=== PATIENT | female | born 2000 | race Caucasian/White ===

== ENCOUNTER 2022-04-25 10:15 | Outpatient (CLI) | payer MEDICAID, SELFPAY ==
[2022-04-26 23:47] LABS: Immunoglobulin A 136 mg/dL (68-408)
[2022-04-27 15:15] LABS: Tissue Transglutaminase IgA 45 U/mL (0-3)
== END 2022-04-25 10:16 | disposition home or self-care (01) ==
LOC: FRMREF 10:17
PROVIDERS: PCP Family Medicine; Visit Provider Nurse Practitioner Family
DX: R14.0 Abdominal distension (gaseous) (principal)
CPT/HCPCS: 82784; 86364

== ENCOUNTER 2023-05-04 08:13 | Outpatient (CLI) | payer MEDICAID, SELFPAY ==
[2023-05-04 15:14] LABS: Chlamydia DNA Amplified* NOT DETECTED (No Detected); GC DNA Amplified* NOT DETECTED (No Detected)
== END 2023-05-04 08:14 | disposition home or self-care (01) ==
PROVIDERS: PCP Family Medicine; Visit Provider Registered Nurse
DX: Z11.3 Encounter for screening for infections with a predominantly sexual mode of transmission (principal); N92.6 Irregular menstruation, unspecified
CPT/HCPCS: 84443; 87491; 87591

== ENCOUNTER 2023-07-03 19:13 | Outpatient (CLI) | payer MEDICAID, SELFPAY | END 2023-07-03 19:14 | disposition home or self-care (01) | PROVIDERS: PCP Family Medicine; Visit Provider Emergency Medicine | DX: R55 Syncope and collapse (principal); Z13.228 Encounter for screening for other metabolic disorders | CPT/HCPCS: 80053; 83735 ==

== ENCOUNTER 2024-09-18 16:07 | Emergency (ER) | payer MEDICAID, SELFPAY ==
--- OUTSIDE RECORDS SUMMARY | 2024-09-18 16:09 | XMS_ITS | Encounter Summary ---
Author Organization [facility] Address [address] [place] [address] Care Team Providers Care Hired Help Name Role Phone Se Ann MD Primary Care Provider [phone] Steven Lay PA-C Unavailable [phone] Reason for Visit * Reason Comments Follow up Intermittent headach es Encounter Details Date Type Department Care Team (Late st Contact Info) Description 09/04/2024 2:00 PM CDT Office Visit [facility] - 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 Headaches occurring 2-3 times per month since starting Depakote, but increased frequency in the past week Experienced a brain zap sensation on Sunday, Following the brain zap, developed a headache in the back of the head which has continued since, now described as a normal headache Typical headaches usually occur in the front of the head, affecting the eyes Has been experiencing daily dull pressure headaches in the past week, associated with increased stress and anxiety Reports waking up in the middle of the night in a panic, feeling like falling, or jolting awake Not sleeping well lately History of seizures: first seizure as a baby with fever, second seizure at age 7 without fever Episode in June 2023 where Kenya was talking to a student but couldn't recall what happened afterward, was confused, saying things that didn't make sense, and was very tired for the rest of the day Previous EEG showed slight abnormality with abnormal slowing and right temporal sharp wave, but no definitive seizure activity Previous MRI of the brain was normal (performed last winter) Family history of epilepsy (grandmother has epilepsy, typically presents with mumbling, had one episode with convulsions) Currently taking Depakote (two pills at night) and has rizatriptan as needed Has been taking Ashwagandha inconsistently No recent blood work Assessment: Migraine headaches, currently increased in frequency Possible seizure disorder, though episodes may be migraine-related Plan: Continue Depakote (two pills at night) Add amitriptyline to be taken every night one hour before bedtime to improve sleep, prevent dull headaches, and help with anxiety/stress Continue rizatriptan as needed for headaches that last more than 30 minutes Order repeat EEG to clarify previous findings Order blood work to check liver function and other parameters related to Depakote therapy Follow-up appointment in 6 weeks Pertinent history: Her recent MRI of the brain on 09/19/2023 was normal and saw no new findings compared to her previous scan in 2007. She did have an EEG performed on 09/03/2023 that was abnormal that had intermittent right temporal slowing with occasional right temporal sharp waves which is consistent with interictal finding of complex partial seizures. PAST MEDICAL HISTORY Past Medical History: Diagnosis Date Confusion and disorientation Headache PAST SURGICAL HISTORY No past surgical history on file. ALLERGIES/SENSITIVITIES No Known Allergies CURRENT MEDS Current Outpatient Medications: divalproex (DEPAKOTE ER) 250 mg oral 24-hour extended-release tablet, Take 2 tablets qhs., Disp: 180 tablet, Rfl: 3 rizatriptan (MAXALT) 10 mg oral tablet, Take 1 tablet (10 mg) by mouth as needed for migraine headache. May repeat after two hours. Maximum dose 30mg/24 hours., Disp: 12 tablet, Rfl: 11 SOCIAL HISTORY Social History Socioeconomic History Marital status: Single Spouse name: Not on file Number of children: Not on file Years of education: Not on file Highest education level: Not on file Occupational History Not on file Tobacco Use Smoking status: Never Smokeless tobacco: Never Substance and Sexual Activity Alcohol use: Not Currently Drug use: Not on file Sexual activity: Not on file Other Topics Concern Not on file Social History Narrative Not on file Social Drivers of Health Financial Resource Strain: High Risk (05/28/2021) [facility] Financial Resource Strain Difficulty of Paying Living Expenses: Not on file Difficulty of Paying Living Expenses: Not on file Food Insecurity: Not on file Transportation Needs: Not on file Physical Activity: Not on file Stress: Not on file Social Connections: Unknown (05/28/2021) Received from [facility], [facility], [facility] Social Connections Frequency of Communication with Friends and Family: Not on file Intimate Partner Violence: Not on file Housing Stability: Not on file FAMILY HISTORY Family History Problem Relation Name Age of Onset Seizures Maternal Grandmother REVIEW OF SYSTEMS: 10 point ROS was otherwise negative. I spent 32 min. with the patient in activities before, during and after the visit 2024: Documentation of current mediations reviewed every visit 2. Does patient use tobacco? No 3. Patient has had no falls in calendar year 4. Does patient have Dementia? No I am the single focal point of care for a condition that requires longitudinal relationship and personalized care for condition(s) specified within this medical record. Clem Flores MD Neurology documented in this encounter Plan of Treatment Scheduled Orders Name Type Priority Associated Diagnoses Orde r Schedule CBC/DIFFERENTIAL WITH PLATELET ([facility]) Lab Routine Migraine with aura and without status migrainosus, not intractable Twice a Year for 3 Occurrences starting 09/04/2024 until 09/04/2025 COMPREHENSIVE METABOLIC PANEL 14 ([facility]) Lab Routine Migraine with aura and without status migrainosus, not intractable Expected: 09/04/2024, Expires: 09/04/2025 documented as of this encounter Results * EEG AWAKE AND DROWSY ROUTINE (09/11/2024 2:55 PM CDT) Anatomical Region Laterality Modality Magnetic Resonan ce Narrative 09/11/2024 5:11 PM CDT Table formatting from the original result was not included. PATIENT NAME: Kenya Das LOCATION: [place] TEST DATE: 09/11/2024 : 2000 TECH NAME: Brant AGE: 24 DURATION: 00:25:26 GENDER: REF. PHYSICIAN Female Clem Flores MD CC: N/A MEDICATIONS: Elavil, Divalproex REASON FOR REFERRAL: History of Confusion and disorientation. Findings: Background: normal posterior dominant alpha activity of 10 hz frequency, attenuation with eye opening Photic stimulation: No driving Hyperventilation: There is increased right central temporal slowing with intermittent sharp waves in the right temporal leads. Sleep record: None Other findings: There is intermittent right hemispheric theta slowing with right temporal spikes and sharp waves localized to T6. EKG- Normal sinus rhythm, 84 bpm. Conclusion: Abnormal EEG. 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 Electronically Signed By: Clem Flores MD us Clem Flores MD EEG ORDERABLE Final Re sult documented in this encounter Visit Diagnoses Diagnosis Migraine with aura and without status migrainosus, not intractable- Primary Migraine with aura, without mention of intractable migraine without mention of status migrainosus Confusion and disorientation Confusion and disorientation documented in this encounter Care Teams Hired Help Relationship Specialty [place] [address] [place] [address] PCP - General 07/05/23 Steven Lay PA-C [address] [place] [address] Neurology 08/15/23 documented as of this encounter
--- OUTSIDE RECORDS SUMMARY | 2024-09-18 16:09 | XMS_ITS | Clinical Summary ---
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 Gender Identity Not on file Sexual Orientation Not on file Travel History Travel Start Travel End [place] 08/04/2024 09/01/2024 Plan of Treatment Not on file Procedures Procedure Name Priority Date/Time Associated Diagnosis Comments CBC WITH PLATELETS & DIFFERENTIAL Routine 09/04/2024 3:00 PM CDT Classical migraine CBC WITH PLATELETS AND DIFFERENTIAL Routine 09/04/2024 3:00 PM CDT Classical migraine COMPREHENSIVE METABOLIC PANEL Routine 09/04/2024 3:00 PM CDT Classical migraine from Last 3 Months Results * CBC with platelets and differential (09/04/2024 3:00 PM CDT) [facility] WBC Count 10.3 4.0 - 11.0 10e3/uL 09/04/2024 3:07 PM CDT [facility] RBC Count 4.53 3.80 - 5.20 10e6/uL 09/04/2024 3:07 PM CDT [facility] Hemoglobin 14.1 11.7 - 15.7 g/dL 09/04/2024 3:07 PM CDT [facility] Hematocrit 41.1 35.0 - 47.0 % 09/04/2024 3:07 PM CDT [facility] MCV 91 78 - 100 fL 09/04/2024 3:07 PM CDT [facility] MCH 31.1 26.5 - 33.0 pg 09/04/2024 3:07 PM CDT [facility] MCHC 34.3 31.5 - 36.5 g/dL 09/04/2024 3:07 PM CDT [facility] RDW 12.9 10.0 - 15.0 % 09/04/2024 3:07 PM CDT [facility] Platelet Count 275 150 - 450 10e3/uL 09/04/2024 3:07 PM CDT [facility] % Neutrophils 71 % 09/04/2024 3:07 PM CDT [facility] % Lymphocytes 21 % 09/04/2024 3:07 PM CDT [facility] % Monocytes 8 % 09/04/2024 3:07 PM CDT [facility] % Eosinophils 0 % 09/04/2024 3:07 PM CDT [facility] % Basophils 1 % 09/04/2024 3:07 PM CDT [facility] % Immature Granulocytes 0 % 09/04/2024 3:07 PM CDT [facility] NRBCs per 100 WBC 0 <1 /100 025 3:07 PM CDT [facility] Absolute Neutrophils 7.2 1.6 - 8.3 10e3/uL 09/04/2024 3:07 PM CDT [facility] Absolute Lymphocytes 2.1 0.8 - 5.3 10e3/uL 09/04/2024 3:07 PM CDT [facility] Absolute Monocytes 0.8 0.0 - 1.3 10e3/uL 09/04/2024 3:07 PM CDT [facility] Absolute Eosinophils 0.0 0.0 - 0.7 10e3/uL 09/04/2024 3:07 PM CDT [facility] Absolute Basophils 0.1 0.0 - 0.2 10e3/uL 09/04/2024 3:07 PM CDT [facility] Absolute Immature Granulocytes 0.0 <=0.4 10e3/uL 09/04/2024 3:07 PM CDT [facility] Absolute NRBCs 0.0 10e3/uL 09/04/2024 3:07 PM CDT LABORATORY Blood STRUCTURE OF RIGHT UPPER LIMB / Unknown Venipuncture / Unknown 09/04/2024 3:00 PM CDT 09/04/2024 3:02 PM CDT us Clem Flores MD LAB - BLOOD ORDERABLES Final Result LABORATORY [facility] [address] [facility] Lab (1st floor, no room number) [place] [address], [facility] * Comprehensive metabolic panel (09/04/2024 3:00 PM CDT) Sodium 138 135 - 145 mmol/L 09/04/2024 3:29 PM CDT LABORATORY Potassium 4.1 3.4 - 5.3 mmol/L 09/04/2024 3:29 PM CDT LAB[facility]ATORY Carbon Dioxide (CO2) 25 22 - 29 mmol/L 09/04/2024 3:29 PM CDT LAB[facility]ORY Anion Gap 11 7 - 15 mmol/L 09/04/2024 3:29 PM CDT LABORATORY Urea Nitrogen 9.7 6.0 - 20.0 mg/dL 09/04/2024 3:29 PM CDT [facility] Creatinine 0.69 0.51 - 0.95 mg/dL 09/04/2024 3:29 PM CDT [facility] GFR Estimate >90 >60 mL/min/1.7 3m2 09/04/2024 3:29 PM CDT [facility] Comment:eGFR calculated us2020 CKD-EPI equation. Calcium 9.4 8.8 - 10.4 mg/dL 09/04/2024 3:29 PM CDT LABORATORY Chloride 102 98 - 107 mmol/L 09/04/2024 3:29 PM CDT LABORATORY Glucose 86 70 - 99 mg/dL 09/04/2024 3:29 PM CDT [facility] Alkaline Phosphatase 74 40 - 150 U/L 09/04/2024 3:29 PM CDT [facility] AST 38 0 - 45 U/L 09/04/2024 3:29 PM CDT [facility] ALT 38 0 - 50 U/L 09/04/2024 3:29 PM CDT [facility] Protein Total 7.6 6.4 - 8.3 g/dL 09/04/2024 3:29 PM CDT [facility] Albumin 4.9 3.5 - 5.2 g/dL 09/04/2024 3:29 PM CDT [facility] Bilirubin Total 0.4 <=1.2 mg/dL 09/04/2024 3:29 PM CDT [facility] Blood STRUCTURE OF RIGHT UPPER LIMB / Unknown Venipuncture / Unknown 09/04/2024 3:00 PM CDT 09/04/2024 3:02 PM CDT us Clem Flores MD LAB - BLOOD ORDERABLES Final Result [facility] [address] Lab (1st floor, no room number) [place] [address], [facility] from Last 3 Months Insurance [facility] Care Teams Patient Carrier Relationship Specialty Start Date End Date Tino Ann MD [facility] [address] [place], [place] [id number] PCP - General Family Medicine 09/04/24
--- OUTSIDE RECORDS SUMMARY | 2024-09-18 16:09 | XMS_ITS | Clinical Summary ---
Author Organization [facility] Address [address] [place] [address] Care Team Providers Care Hand Weaver Name Role Phone Pcp, No Primary Care Provider Unavailabl e Unknown, Doctor Unavailable Unavailable Unknown, Doctor Unavailable Unavailable Allergies No known active allergies Medications Hospital, Clinic, or Other Facility Administered Medication Ordered Dose Route Frequency Start Date End Date Status etonogestrel subdermal implant (NEXPLANON) 1 EachIndications:Uses contraception 1 Each Sdrm Q 3 YEARS 08/05/2020 Active Family History Medical History Relation Name Comments Good Health Brother 1 Isacc Das Good Health Brother 2 Eddie Christopheron Good Health Brother 3 Ty Pippa Hypertension Father Manny Das Good Health Maternal Grandfather Good Health Maternal Grandmother Good Health Mother Jasmin Das Good Health Paternal Grandfather Good Health Paternal Grandmother Good Health Sister Mindy Das Relation Name Status Comments Brother 1 Isacc Christopheron Alive Brother 2 Eddie Christopheron Alive Brother 3 Ty Pippa Alive Father Manny Das Alive Maternal Grandfather Other Maternal Grandmother Alive Mother Jasmin Das Alive Paternal Grandfather Alive Paternal Grandmother Alive Sister Mindy Das Alive Social History Tobacco Use Types Packs/Day Years Used Date Smoking Tobacco: Never Smokeless Tobacco: Never Alcohol Use Standard Drinks/Week Comments Never 0 (1 standard drink = 0.6 oz pur e alcohol) Social Connections Answer Date Recorded Frequency of Communication with Friends and Fami ly Not on file 05/28/2021 Financial Resource Strain Answer Date R ecorded Difficulty of Paying Living Expenses Not on file 05/28/2021 Difficulty of Paying Living Expenses Not on file 05/28/2021 Comments No Sex and Gender Information Value Date Recorded Sex Assigned at Not on file 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 Gender Identity Not on file Sexual Orientation Not on file Obstetrics History Last Filed Vital Signs Vital Sign Reading Time Taken Comments Blood Pressure 124/80 09/17/2020 8:18 AM CDT Pulse 80 09/17/2020 8:18 AM CDT Temperature 37.1 C (98.7 F) 09/17/2020 8:18 AM CDT Respiratory Rate 20 07/27/2020 2:38 PM SANDWICH MACHINE OPERATOR Oxygen Saturation 100% 09/01/2020 11: 20 AM CDT Inhaled Oxygen Concentration - - Weight 69.7 kg (153 lb 11.2 oz) 09/17/2020 8:18 AM CDT Height 169 cm (5' 6.54) 09/17/2020 8:18 AM CDT Body Mass Index 24.41 09/17/2020 8:18 AM CDT Plan of Treatment Health Maintenance Due Date Last Done Comments Tdap 2012 Depression screening for age 12+ 2013 HIV for age 15-65 2016 HPV series for age 9-26 (1 - 3-dose series) 2016 Hepatitis C screening for ag e 18-79 2019 Tetanus booster 2021 BMI (ht and wt on same day) for age 18+ 09/17/2021 09/17/2020 Chlamydia for age 16-24 09/17/2021 09/17/2020 Pap test for age 21-65 2022 COVID-19 vaccine series (2023- season) 2024 Influenza Vaccine (Season Ended) 2025 Pneumococcal series for age 6-49 Aged Out No longer eligible based on patient's age to complete this topic Procedures Procedure Name Priority Date/Time Associated Diagnosis Comments GC CHLAMYDIA TRACH PROBE Routine 09/17/2020 8:54 AM CDT Vaginal discharge from Last 3 Months or Most Recently Relevant to Health Maintenance Results * GC CHLAMYDIA TRACH PROBE (09/17/2020 8:54 AM CDT) CHLAMYDIA PROBE Negative 11:41 PM CDT [facility] N GONORRHOEAE PROBE Negative 09/17/2020 11:41 PM CDT [facility] Other URINE SPECIMEN / Unknown Non-Blood / Unknown 09/17/2020 8:54 AM CDT 09/17/2020 8:54 AM CDT us Akanksha Johnson MD MICROBIOLOGY Fi nal Result [facility] [address] [place] [address], from Last 3 Months or Most Recently Relevant to Health Maintenance Insurance [facility] Care Teams Hand Weaver Relationship Specialty Start Date End Date Pcp, No . PCP - General 09/17/20 Unknown, Doctor . 09/17/20 Unknown, Doctor . 09/01/20
--- OUTSIDE RECORDS SUMMARY | 2024-09-18 16:09 | XMS_ITS | Encounter Summary ---
Author Organization [facility] Address [address] [place] [address]. [place] [address] Care Team Providers Care Ergonomics Technician Name Role Phone Tino Ann MD Primary Care Provider [phone] Encounter Details Date Type Department Care Team (Late st Contact Info) Description 09/04/2024 2:[address] 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 Gender Identity Not on file Sexual Orientation Not on file Travel History Travel Start Travel End [place] 08/04/2024 09/01/2024 documented as of this encounter Plan of Treatment Not on file documented as of this encounter Procedures Procedure Name Priority Date/Time Associated Diagnosis Comments CBC WITH PLATELETS AND DIFFERENTIAL Routine 09/04/2024 3:00 PM CDT Classical migraine CBC WITH PLATELETS & DIFFERENTIAL Routine 09/04/2024 3:00 PM CDT Classical migraine COMPREHENSIVE METABOLIC PANEL Routine 09/04/2024 3:00 PM CDT Classical migraine documented in this encounter Results * CBC with platelets and differential (09/04/2024 3:00 PM CDT) WBC Count 10.3 4.0 - 11.0 10e3/uL [...] NRBCs 0.0 10e3/uL 09/04/2024 3:07 PM CDT [facility] Blood STRUCTURE OF RIGHT UPPER LIMB / Unknown Venipuncture / Unknown 09/04/2024 3:00 PM CDT 09/04/2024 3:02 PM CDT us Clem Flores MD LAB - BLOOD ORDERABLES Final Result LABORATORY [facility] [address] Lab (1st floor, no room number) [place] [address], [facility] * Comprehensive metabolic panel (09/04/2024 3:00 PM [...] - 20.0 mg/dL 09/04/2024 3:29 PM CDT LABORATORY Creatinine 0.69 0.51 - 0.95 mg/dL 09/04/2024 3:29 PM CDT LABORATORY GFR Estimate >90 >60 mL/min/1.7 3m2 09/04/2024 3:29 PM CDT LABORATORY Comment:eGFR calculated us2020 CKD-EPI equation. Calcium [...] LAB - BLOOD ORDERABLES Final Result LABORATORY [facility] [address] Lab (1st floor, no room number) [place] [address], [facility] documented in this encounter Visit Diagnoses Diagnosis Classical migraine- Primary Migraine with aura, without mention of intractable migraine without mention of status migrainosus documented in this encounter Care Teams Ergonomics Technician Relationship Specialty Start Date End Date Tino Ann MD [facility] [address], [place] [address] PCP - General Family Medicine 09/04/24 documented as of this encounter
--- OUTSIDE RECORDS SUMMARY | 2024-09-18 16:09 | XMS_ITS | Referral Summary ---
Author Organization [facility] Address [address] [place] [address] Care Team Providers Care Phone Screener Name Role Phone Se Ann MD Primary Care Provider [phone] Steven Lay PA-C Unavailable [phone] Encounters Date Type Department Care Team Description 09/11/2024 2:15 PM CDT Ancillary Procedure 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 180 tablet 3 5 Active rizatriptan (MAXALT) 10 mg oral tabletIndication s:Migraine with aura and without status migrainosus, not intractable Take 1 tablet (10 mg) by mouth as needed for migraine headache. May repeat after two hours. Maximum dose 30mg/24 hours. 12 tablet 11 5 Active amitriptyline (ELAVIL) 10 mg oral tablet Take 1 tablet (10 mg) by mouth at bedtime for 90 days. 90 tablet 5 12/04/19 25 Active Active Problems No known active problems Immunizations Name Administration Dates Next Due DTaP (Infanrix) 11/16/2006,03/25/2003,01/31/2002 ,2001,2001 HIB 2001 HPV Quadrivalent 01/07/2014 HPV9 12/19/2016 Hep A Pediatric 12/19/2016,01/07/2014 Hep B Pediatric 07/23/2002,2001 Influenza Unspecified 07/14/2006,04/27/2003 MMR 11/16/2006,03/25/2003 Meningococcal MCV4O 01/07/2014 Pneumococcal PCV7 07/23/2002,01/31/2002,11/27/19 02,2001 Polio IPV 11/16/2006,01/31/2002,2001 ,2001 Varicella 01/07/2014,07/23/2002 Social History Tobacco Use Types Packs/Day Years Used Date Smoking Tobacco: Never Smokeless Tobacco: Never Tobacco Cessation:Counseling Given: Not Answered Alcohol Use Standard Drinks/Week Comments Not Currently 0 (1 standard drink = 0.6 oz pur e alcohol) Comments Unknown Sex and Gender Information Value Date Recorded Sex Assigned at Not on file 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 Gender Identity Not on file Sexual Orientation Not on file Last Filed Vital Signs Vital Sign Reading Time Taken Comments Blood Pressure 124/78 08/29/2023 9:05 AM CDT Pulse 70 08/29/2023 9:05 AM CDT Temperature - - Respiratory Rate 14 08/01/2024 9:15 AM FITTING ROOM INSPECTOR Oxygen Saturation - - Inhaled Oxygen Concentration - - Weight 79.4 kg (175 lb) 08/01/2024 9:15 AM FITTING ROOM INSPECTOR Height 167.6 cm (5' 6) 08/01/2024 9:15 AM FITTING ROOM INSPECTOR Body Mass Index 28.25 08/01/2024 9:15 AM FITTING ROOM INSPECTOR Plan of Treatment Not on file Procedures Procedure Name Priority Date/Time Associated Diagnosis Comments EEG AWAKE AND DROWSY ROUTINE Routine 09/11/2024 2:55 PM CDT Confusion and disorientation SCANNED LAB Routine 09/04/2024 4:18 PM CDT from Last 3 Months Results * EEG AWAKE AND DROWSY ROUTINE (09/11/2024 2:55 PM CDT) Anatomical Region Laterality Modality Magnetic Resonan ce Narrative 09/11/2024 5:11 PM CDT Table formatting from the original result was not included. PATIENT NAME: Kenya Das LOCATION: [place] TEST DATE: 09/11/2024 : 2001 TECH NAME: [...] Flores MD EEG ORDERABLE Final Re sult * SCANNED LAB (09/04/2024 4:18 PM CDT) us Clem Flores MD MICROBIOLOGY ORDERABLE F inal Result from Last 3 Months Insurance [facility] Care Teams Phone Screener Relationship Specialty [place] [address] [place], [place] [id number] PCP - General 07/05/23 Steven Lay PA-C [address] [facility] [address] [place] [address] Neurology 08/15/23
--- OUTSIDE RECORDS SUMMARY | 2024-09-18 16:09 | XMS_ITS | Encounter Summary ---
Author Organization [facility] Address [address] [place] [address]. 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
[2024-09-18 16:10] VITALS: BP 138/87; PULSE 110; RESP 16; TEMP 36.7; O2SAT 99; BMI 26.6
--- OUTSIDE RECORDS SUMMARY | 2024-09-18 16:10 | XMS_ITS | Encounter Summary ---
Author Organization [facility] Address [address] [place] [address] Care Team Providers Care Submarine Worker Name Role Phone Se Ann MD Primary Care Provider [phone] Steven Lay PA-C Unavailable [phone] Encounter Details Date Type Department Care Team (Latest Contact Info) Description 09/11/2024 2:15 PM CDT Ancillary Procedure [facility] of Neurology [address] [place], [place] [id number] Confusion and disorientation Social History Tobacco Use Types Packs/Day Years Used Date Smoking Tobacco: Never Smokeless Tobacco: Never Alcohol Use Standard Drinks/Week Comments Not Currently 0 (1 standard drink = 0.6 oz pur e alcohol) Comments Unknown Sex and Gender Information Value Date Recorded Sex Assigned at Not on file Legal Sex Female 11:57 AM DISTILLERY MANAGER Gender Identity Not on file Sexual Orientation Not on file documented as of this encounter Plan of Treatment Not on file documented as of this encounter Procedures Procedure Name Priority Date/Time Associated Diagnosis Comments EEG AWAKE AND DROWSY ROUTINE Routine 09/11/2024 2:55 PM CDT Confusion and disorientation documented in this encounter Results * EEG AWAKE AND DROWSY ROUTINE (09/11/2024 2:55 PM CDT) Anatomical Region Laterality Modality Magnetic Resonan ce Narrative 09/11/2024 5:11 PM CDT Table formatting from the original result was not included. PATIENT NAME: Kenya Das LOCATION: [place] TEST DATE: 09/11/2024 : 2001 TECH NAME: [...] documented in this encounter Visit Diagnoses Diagnosis Confusion and disorientation documented in this encounter Care Teams Submarine Worker Relationship Specialty [place] [address] [place] [address] PCP - General 07/05/23 Stevne Lay PA-C [address] [place] [address] [address] [place] [address] Neurology 08/15/23 documented as of this encounter
--- OUTSIDE RECORDS SUMMARY | 2024-09-18 16:10 | XMS_ITS | Encounter Summary ---
Author Organization [facility] Address [address] [place] [address] Care Team Providers Care Square Shear Operator Name Role Phone Se Ann MD Primary Care Provider [phone] Steven Lay PA-C Unavailable [phone] Encounter Details Date Type Department Care Team (Late st Contact Info) Description 09/04/2024 Order-Scan [facility] of Neurology [address] [place] [phone] Clem Flores MD [address] [place] [address] [place] [id number] Social History Tobacco Use Types Packs/Day Years Used Date Smoking Tobacco: Never Smokeless Tobacco: Never Alcohol Use Standard Drinks/Week Comments Not Currently 0 (1 standard drink = 0.6 oz pur e alcohol) Comments Unknown Sex and Gender Information Value Date Recorded Sex Assigned at Not on file Legal Sex Female 11:57 AM SENIOR SQL DBA Gender Identity Not on file Sexual Orientation Not on file documented as of this encounter Plan of Treatment Not on file documented as of this encounter Procedures Procedure Name Priority Date/Time Associated Diagnosis Comments SCANNED LAB Routine 09/04/2024 4:18 PM CDT documented in this encounter Results * SCANNED LAB (09/04/2024 4:18 PM CDT) us Clem Flores MD MICROBIOLOGY ORDERABLE F inal Result documented in this encounter Visit Diagnoses Not on filedocumented in this encounter Care Teams Square Shear Operator Relationship Specialty [place] [address] [place] [address] PCP - General 07/05/23 Steven Lay PA-C [address] [facility] [address] [place] [address] Neurology 08/15/23 documented as of this encounter
--- OUTSIDE RECORDS SUMMARY | 2024-09-18 16:10 | XMS_ITS | Clinical Summary ---
Author Organization [facility] Address [address] [place] [address] Care Team Providers Care Director Of Online Education Name Role Phone Se Ann MD Primary Care Provider [phone] Steven Lay PA-C Unavailable [phone] Allergies No known active allergies Medications divalproex [...] Active Active Problems No known active problems Encounters Date Type Department Care Team Description 09/11/2024 2:15 PM CDT Ancillary Procedure [facility] Neurology [address] [place] [address] Confusion and disorientation 09/04/2024 2:00 PM CDT Office Visit [address] [place] [address] Clem Flores MD Migraine with aura and without status migrainosus, not intractable (Primary Dx); Confusion and disorientation 09/04/2024 Order-Scan [address] [place] [address] Clem Flores MD 08/01/2024 9:00 AM MEMBERSHIP ADVISOR Office Visit [address] [place] [address] Steven Lay PA-C Migraine with aura and without status migrainosus, not intractable; Confusion and disorientation; Anxiety disorder, unspecified type from Last 3 Months Immunizations Name Administration Dates Next Due DTaP (Infanrix) 11/16/2006,03/25/2003,01/31/2002 ,2001,2001 HIB 2001 HPV Quadrivalent 01/07/2014 HPV9 12/19/2016 Hep A Pediatric 12/19/2016,01/07/2014 Hep B Pediatric 07/23/2002,2001 Influenza Unspecified 07/14/2006,04/27/2003 MMR 11/16/2006,03/25/2003 Meningococcal MCV4O 01/07/2014 Pneumococcal PCV7 07/23/2002,01/31/2002,11/27/19 02,2001 Polio IPV 11/16/2006,01/31/2002,2001 ,2001 Varicella 01/07/2014,07/23/2002 Family History Medical History Relation Comments Seizures Maternal Grandmother Relation Status Comments Maternal Grandmother Social History Tobacco Use Types Packs/Day Years Used Date Smoking Tobacco: Never Smokeless Tobacco: Never Tobacco Cessation:Counseling Given: Not Answered Alcohol Use Standard Drinks/Week Comments Not Currently 0 (1 standard drink = 0.6 oz pur e alcohol) Comments Unknown Sex and Gender Information Value Date Recorded Sex Assigned at Not on file Legal Sex Female 11:57 AM MEMBERSHIP ADVISOR Gender Identity Not on file Sexual Orientation Not on file Last Filed Vital Signs Vital Sign Reading Time Taken Comments Blood Pressure 124/78 08/29/2023 9:05 AM CDT Pulse 70 08/29/2023 9:05 AM CDT Temperature - - Respiratory Rate 14 08/01/2024 9:15 AM MEMBERSHIP ADVISOR Oxygen Saturation - - Inhaled Oxygen Concentration - - Weight 79.4 kg (175 lb) 08/01/2024 9:15 AM MEMBERSHIP ADVISOR Height 167.6 cm (5' 6) 08/01/2024 9:15 AM MEMBERSHIP ADVISOR Body Mass Index 28.25 08/01/2024 9:15 AM MEMBERSHIP ADVISOR Plan of Treatment Health Maintenance Due Date Last Done Comments Chlamydia/Gonorrhea Screening 2001 Evaluate Sexual History 2001 Hepatitis C Screening 2001 Pap Smear 2001 Anxiety Screening (MEGHAN-2) 2002 Depression Assessment (PHQ-2) 2002 Adult Tetanus Booster 01/08/2024 01/07/2014 COVID-19 Vaccine ( season) 2024 Influenza Vaccine (Season Ended) 2025 07/14/2006, 04/27/2003 RSV Vaccines (1 - 1-dose 75+ series) 2076 Pneumococcal Vaccine Aged Out 07/23/2002, 01/31/2002, 2001, Additional history exists No longer eligible based on patient's age to complete this topic HPV Vaccine Completed 12/19/2016, 01/07/2014 Procedures Procedure Name Priority Date/Time Associated Diagnosis [...] not included. PATIENT NAME: Kenya Das LOCATION: [place] TEST DATE: 09/11/2024 : 2001 TECH NAME: [...] inal Result from Last 3 Months Insurance [facility] Care Teams Director Of Online Education Relationship Specialty [place] [address] [place] [address] PCP - General 07/05/23 Steven Lay PA-C [address] [facility] [address] [place] [address] Neurology 08/15/23
--- NOTE | 2024-09-18 18:08 | ED_ITS ---
HPI - Arrhythmia/Palpitations General Chief Complaint: Arrhythmia/Palpitations Stated Complaint: reaction to new medications, heart racing Time Seen by Provider: 09/18/24 17:31 History of Present Illness HPI narrative: This 24-year-old female comes in reporting some episodes of palpitations and sometimes increased heart rate. She states that this is been happening over the past several days and reports starting a low dose of amitriptyline about a week ago. She takes Depakote for seizure prevention as she has a history of seizure disorder. She had been to a neurology appointment and did not see a regular neurologist but an engineering assistant who did provide this prescription of amitriptyline 10 mg as she was having some headache symptoms. She states that she takes a Triptan medicine as needed for migraine type headaches. Since starting this low dose of amitriptyline she has been feeling palpitations and sometimes increased heart rate. She does not report any chest pain or shortness of breath. She does not have any other symptoms related to these palpitations. Related Data Home Medications ?Medication ?Instructions ?Recorded ?Confirmed amitriptyline 10 mg tablet 10 mg PO QPM 09/18/24 09/18/24 divalproex 250 mg tablet,extended 500 mg PO QPM 09/18/24 09/18/24 release 24 hr rizatriptan 10 mg tablet mg PO 09/18/24 Previous Rx's ?Medication ?Instructions ?Recorded drospirenone (contraceptive) 4 mg 4 mg PO QDAY #3 packets 05/04/23 (28) tablet (Slynd) Allergies Allergy/AdvReac Type Severity Reaction Status Date / Time clavulanic acid Allergy Severe Hives Verified 07/03/23 18:49 amoxicillin Allergy Unknown hives, Verified 07/03/23 18:49 swollen eyes, vomiting Review of Systems Status of ROS: Reports: 10 or more systems reviewed and unremarkable except as noted in History and below Narrative: Constitutional: No fevers, no weight gain or loss. Eyes: No discharge. No vision changes. HENT: No congestion, no sore throat, no ear pain. Cardiovascular: No chest pain. Palpitations as described above. Respiratory: No shortness of breath, no wheezes, no cough. Gastrointestinal: No abdominal pain, no vomiting, no diarrhea. Genitourinary: No dysuria, no hematuria. Musculoskeletal: Normal range of motion. Skin: No rashes, no pruritis. Neurological: No dizziness, weakness, sensory change, speech change. Endo/Heme/Allergies: No bruising or bleeding. No polydipsia. Pysch: no suicidality, no anxiety, no insomnia. All other systems reviewed and are negative. [facility] Medical History (Updated 09/18/24 @ 18:12 by Se Mccarthy MD) Near syncope ?R55 - Syncope and collapse (ICD-10) Family History Father Depression Brother Depression Family/Other Epilepsy Social History Narrative: Currently a [employer] Exercises 3x per week, cardio Smoking: No current or past use Tobacco use: No current or past use Alcohol use: No current or past use Smoking Status: Never smoker Exam Narrative: Exam Narrative: Constitutional: Well-developed, well-nourished, no acute distress. HEENT: Normocephalic, atraumatic. Neck: Normal range of motion. Nontender. Supple. Heart: Regular. No murmurs. Normal rate. Intact distal pulses. Lungs: Clear to auscultation. No chest discomfort. No wheezes, rhonchi, or rales. Abdomen: Normal bowel sounds. Nontender. No rebound tenderness. Genitalia: Deferred. Back: No midline tenderness. Normal range of motion. Extremities: Normal range of motion. No injury. Skin: Intact. No rash. Warm. No erythema or pallor. Neurologic: No altered sensation. No weakness. Alert and oriented. Psychiatric: No suicidality. No anxiety or depression. No insomnia. Nursing notes and vitals signs are reviewed. Const: Vital Signs, click to edit/add: Vital Signs - 24 hr 09/18/24 16:10 Temperature 98.0 F Pulse Rate [Pulse Oximeter] 110 H Respiratory Rate 16 Blood Pressure [Ri ght Upper Arm] 138/87 Pulse Oximetry 99 Oxygen Delivery Me thod Room Air Course Vital Signs Vital signs: Initial Vital Signs Temperature 98.0 F 09/18/24 16:10 Temperature Source Temporal Artery Scan 09/18/24 16:10 Pulse Rate 110 H 09/18/24 16:10 Pulse Rhythm Irregular 09/18/24 16:10 Respiratory Rate 16 09/18/24 16:10 Blood Pressure 138/87 09/18/24 16:10 Blood Pressure Mean 104 09/18/24 16:10 Blood Pressure Position Sitting 09/18/24 16:10 Pulse Oximetry 99 09/18/24 16:10 Oxygen Delivery Method Room Air 09/18/24 16:10 Vital Signs Temperature 98.0 F 09/18/24 16:10 Pulse Rate 110 H 09/18/24 16:10 Respiratory Rate 16 09/18/24 16:10 Blood Pressure 138/87 09/18/24 16:10 Pulse Oximetry 99 09/18/24 16:10 Oxygen Delivery Method Room Air 09/18/24 16:10 Temperature 98.0 F 09/18/24 16:10 Pulse Rate 110 H 09/18/24 16:10 Respiratory Rate 16 09/18/24 16:10 Blood Pressure 138/87 09/18/24 16:10 Pulse Oximetry 99 09/18/24 16:10 Oxygen Delivery Method Room Air 09/18/24 16:10 MDM - Arrhythmia/Palpitations MDM Narrative Medical decision making narrative: This patient comes in reporting some episodes of palpitations and tachycardia and suspects that it is an interaction between her ongoing Depakote usage and a new prescription for amitriptyline. She arrives here with normal vital signs and an EKG is obtained which shows normal sinus rhythm. Her exam is normal today. I did run an interaction check between these 2 medications and there is evidence of possibility of some dysrhythmia when both are taken. I advised her to discontinue this medication and she does have a follow-up appointment with her neurologist in a week or so. ECG Data Attestation: I personally reviewed and interpreted this ECG as follows: Interpretation: Normal sinus rhythm. Rate is 86 beats per minute. There are no ST or T-wave abnormalities. Discharge Plan Discharge Clinical Impression: Palpitations Patient Disposition: Home, Self-Care Condition: Stable Additional Instructions: Okay to discontinue amitriptyline. Continue other medications as prescribed and follow-up with neurologist as scheduled. Return if worsening. Prescriptions: No Action Slynd 4 mg (28) tablet 4 mg PO QDAY Qty: 3 4RF rizatriptan 10 mg tablet PO amitriptyline 10 mg tablet 10 mg PO QPM divalproex 250 mg tablet extended release 24 hr 500 mg PO QPM Follow Up/Referrals: Se Ann MD [Primary Care Provider] - Stand Alone Forms: [email or web address] Info Instructions
--- OUTSIDE RECORDS SUMMARY | 2024-09-18 18:31 | XMS_ITS | Encounter Summary ---
Author Organization [facility] Address [address] [place] [address] Care Team Providers Care Medical Instrument Cable Fabricator Name Role Phone Se Ann MD Primary Care Provider [phone] Steven Lay PA-C Unavailable [phone] Reason for Visit * Reason Comments Follow up Intermittent headach es Encounter Details Date Type Department Care Team (Late st Contact Info) Description 09/04/2024 2:00 PM CDT Office Visit [facility] of Neurology - [address] [place] [address] Clem Flores MD [address] [place] [address] Migraine with aura and without status [...] on file Legal Sex Female 11:[address]IB[address] Gender Identity Not on file Sexual Orientation [...] Resource Strain: High Risk (05/28/2021) [facility] from [facility] Financial Resource Strain Difficulty of Paying Living Expenses: Not on file Difficulty of Paying Living Expenses: Not on file Food Insecurity: Not on file Transportation Needs: Not on file Physical Activity: Not on file Stress: Not on file Social Connections: Unknown (05/28/2021) Received from [facility], [facility] Social Connections Frequency of Communication with Friends [...] not included. PATIENT NAME: Kenya Das LOCATION: [place] TEST DATE: 09/11/2024 : 2001 TECH NAME: [...] disorientation documented in this encounter Care Teams Medical Instrument Cable Fabricator Relationship Specialty [place] [address] [place] [address] PCP - General 07/05/23 Steven Lay PA-C [address] [facility] [address] [place] [address] Neurology 08/15/23 documented as of this encounter
--- OUTSIDE RECORDS SUMMARY | 2024-09-18 18:31 | XMS_ITS | Encounter Summary ---
Author Organization [facility] Address [address] [place] [address]. 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
--- OUTSIDE RECORDS SUMMARY | 2024-09-18 18:31 | XMS_ITS | Clinical Summary ---
Author Organization [facility] Address [address] [place] [address] Care Team Providers Care Bow Repairer Custom Name Role Phone Pcp, No Primary Care [...] on file Legal Sex Female 2:31 PM ORNAMENT STAPLER Gender Identity Not on file Sexual Orientation Not on file Obstetrics History Last Filed Vital Signs Vital Sign Reading Time Taken Comments Blood Pressure 124/80 09/17/2020 8:18 AM CDT Pulse 80 09/17/2020 8:18 AM CDT Temperature 37.1 C (98.7 F) 09/17/2020 8:18 AM CDT Respiratory Rate 20 07/27/2020 2:38 PM ORNAMENT STAPLER Oxygen Saturation 100% 09/01/2020 11: 20 AM [...] CDT) CHLAMYDIA PROBE Negative 11:41 PM CDT [facility] TRAL LABORATORY N GONORRHOEAE PROBE Negative 09/17/2020 11:41 PM CDT [facility] Other URINE SPECIMEN / Unknown Non-Blood / Unknown 09/17/2020 8:54 AM CDT 09/17/2020 8:54 AM CDT us Akanksha Johnson MD MICROBIOLOGY Fi nal Result [facility] [address] [place] [address], from Last 3 Months or Most Recently Relevant to Health Maintenance Insurance [facility] Care Teams Bow Repairer Custom Relationship Specialty Start Date End Date Pcp, No . PCP - General 09/17/20 Unknown, Doctor . 09/17/20 Unknown, Doctor . 09/01/20
--- OUTSIDE RECORDS SUMMARY | 2024-09-18 18:31 | XMS_ITS | Clinical Summary ---
Author Organization [place] Address [address] [place] [address] Care Team Providers Care Therapeutic Case Manager Name Role Phone Tino Ann MD Primary Care Provider [phone] Encounters Date Type Department Care Team Description 09/04/2024 2:55 PM CDT [facility] [address] [place] [phone] Classical migraine (Primary Dx) 09/04/2024 Travel from Last 3 Months Social History Tobacco Use Types Packs/Day Years Used Date Smoking Tobacco: Never Assessed Comments Unknown Sex and Gender Information Value Date Recorded Sex Assigned at Not on file Legal Sex Female 4:19 AM BOTTOM CAGER Gender Identity Not on file Sexual Orientation Not on file Travel History Travel Start Travel End [place] 08/04/2024 09/01/2024 Plan of Treatment Not on [...] platelets and differential (09/04/2024 3:00 PM CDT) [facility] WBC Count 10.3 4.0 - 11.0 10e3/uL [...] LAB - BLOOD ORDERABLES Final Result LABORATORY [facility] Acute [facility] Lab [address] [facility] Lab (1st floor, no room number) [place] [address], [facility] * Comprehensive metabolic panel (09/04/2024 [...] - BLOOD ORDERABLES Final Result RH LABORATORY [facility] [address] Lab (1st floor, no room number) [place] [address], [facility] from Last 3 Months Insurance [facility] Care Teams Therapeutic Case Manager Relationship Specialty Start Date End Date Tino Ann MD [facility] [address] [place], [place] [id number] PCP - General Family Medicine 09/04/24
--- OUTSIDE RECORDS SUMMARY | 2024-09-18 18:31 | XMS_ITS | Encounter Summary ---
Author Organization [facility] Address [address] [place] [address] Care Team Providers Care Payer Specialist Name Role Phone Se Ann MD Primary Care Provider [phone] Steven Lay PA-C Unavailable [phone] Encounter Details Date Type Department Care Team (Latest Contact Info) Description 09/11/2024 2:15 PM CDT Ancillary Procedure [facility] Neurology [address] [place], [place] [phone] Confusion and disorientation Social History Tobacco Use Types Packs/Day Years Used Date Smoking Tobacco: Never Smokeless Tobacco: Never Alcohol Use Standard Drinks/Week Comments Not Currently 0 (1 standard drink = 0.6 oz pur e alcohol) Comments Unknown Sex and Gender Information Value Date Recorded Sex Assigned at Not on file Legal Sex Female 11:57 AM TELECOMMUNICATIONS FIELD TECHNICIAN Gender Identity Not on file Sexual [...] not included. PATIENT NAME: Kenya Das LOCATION: [place] TEST DATE: 09/11/2024 : 2000 TECH NAME: [...] Electronically Signed By: Clem Flores MD us Celm Flores MD EEG ORDERABLE Final Re sult documented in this encounter Visit Diagnoses Diagnosis Confusion and disorientation documented in this encounter Care Teams Payer Specialist Relationship Specialty [place] [address] [place] [address] PCP - General 07/05/23 Steven Lay PA-C [address] [place] [address] [address] [place] [address] Neurology 08/15/23 documented as of this encounter
--- OUTSIDE RECORDS SUMMARY | 2024-09-18 18:31 | XMS_ITS | Encounter Summary ---
Author Organization [place] Address [address] [place] [address]. [place] [address] Care Team Providers Care Operater Name Role Phone Tino Ann MD Primary Care Provider [phone] Encounter Details Date Type Department Care Team (Late st Contact Info) Description 09/04/2024 2:55 PM CDT [facility] [address] [place] [address] Classical migraine (Primary Dx) Social History Tobacco Use Types Packs/Day Years Used Date Smoking Tobacco: Never Assessed Comments Unknown Sex and Gender Information Value Date Recorded Sex Assigned at Not on file Legal Sex Female 4:19 AM TABLE HAND Gender Identity Not on file Sexual Orientation Not on file Travel History Travel Start Travel End [place] 08/04/2024 09/01/2024 documented as of this encounter [...] LAB - BLOOD ORDERABLES Final Result LABORATORY [facility] Acute Care Lab [address] Lab (1st floor, no room number) [place] [address], [facility] * Comprehensive metabolic panel (09/04/2024 3:00 PM [...] LAB - BLOOD ORDERABLES Final Result LABORATORY [facility] Acute Care Lab [address] Lab (1st floor, no room number) [place] [address], [facility] documented in this encounter Visit Diagnoses Diagnosis Classical migraine- Primary Migraine with aura, without mention of intractable migraine without mention of status migrainosus documented in this encounter Care Teams Operater Relationship Specialty Start Date End Date Tino Ann MD [facility] [address], [place] [address] PCP - General Family Medicine 09/04/24 documented as of this encounter
--- OUTSIDE RECORDS SUMMARY | 2024-09-18 18:31 | XMS_ITS | Referral Summary ---
Author Organization [facility] Address [address] [place] [address] Care Team Providers Care Construction Pit Worker Name Role Phone Se Ann MD Primary Care Provider [phone] Steven Lay PA-C Unavailable [phone] Encounters Date Type Department Care Team Description 09/11/2024 2:15 PM CDT Ancillary Procedure [address] [place] [address] Confusion and disorientation 09/04/2024 Order-Scan [address] [place] [phone] Clem Flores MD 09/04/2024 2:00 PM CDT Office Visit [address] [place] [address] Clem Flores MD Migraine with aura and without status migrainosus, not intractable (Primary Dx); Confusion and disorientation 08/01/2024 9:00 AM PLASTICS SHEET FINISHING PRESS OPERATOR Office Visit [address] [place] [phone] Steven Lay PA-C Migraine with aura and [...] on file Legal Sex Female 11:57 AM PLASTICS SHEET FINISHING PRESS OPERATOR Gender Identity Not on file Sexual Orientation Not on file Last Filed Vital Signs Vital Sign Reading Time Taken Comments Blood Pressure 124/78 08/29/2023 9:05 AM CDT Pulse 70 08/29/2023 9:05 AM CDT Temperature - - Respiratory Rate 14 08/01/2024 9:15 AM PLASTICS SHEET FINISHING PRESS OPERATOR Oxygen Saturation - - Inhaled Oxygen Concentration - - Weight 79.4 kg (175 lb) 08/01/2024 9:15 AM PLASTICS SHEET FINISHING PRESS OPERATOR Height 167.6 cm (5' 6) 08/01/2024 9:15 AM PLASTICS SHEET FINISHING PRESS OPERATOR Body Mass Index 28.25 08/01/2024 9:15 AM PLASTICS SHEET FINISHING PRESS OPERATOR Plan of Treatment Not on file Procedures [...] not included. PATIENT NAME: Kenya Das LOCATION: [place] TEST DATE: 09/11/2024 : 2000 TECH NAME: [...] inal Result from Last 3 Months Insurance [facility] Care Teams Construction Pit Worker Relationship Specialty [place] [address] [place], [place] [phone] PCP - General 07/05/23 Steven Lay PA-C [address] [facility] [address] [place] [address] Neurology 08/15/23
--- OUTSIDE RECORDS SUMMARY | 2024-09-18 18:31 | XMS_ITS | Clinical Summary ---
Author Organization [facility] Address [address] [place] [address] Care Team Providers Care Complex Case Manager Name Role Phone Se Ann MD Primary Care Provider [phone] Steven Lay PA-C Unavailable [phone] Allergies No known active allergies Medications divalproex [...] 2:15 PM CDT Ancillary Procedure [facility] Neurology [address] [place] [address] Confusion and disorientation 09/04/2024 2:00 PM CDT Office Visit [address] [place] [address] Clem Flores MD Migraine with aura and without status migrainosus, not intractable (Primary Dx); Confusion and disorientation 09/04/2024 Order-Scan [address] [place] [address] Clem Flores MD 08/01/2024 9:00 AM BLOW MOLDING MACHINE OPERATOR Office Visit [address] [place] [address] Steven Lay PA-C Migraine with aura and [...] on file Legal Sex Female 11:57 AM BLOW MOLDING MACHINE OPERATOR Gender Identity Not on file Sexual Orientation Not on file Last Filed Vital Signs Vital Sign Reading Time Taken Comments Blood Pressure 124/78 08/29/2023 9:05 AM CDT Pulse 70 08/29/2023 9:05 AM CDT Temperature - - Respiratory Rate 14 08/01/2024 9:15 AM BLOW MOLDING MACHINE OPERATOR Oxygen Saturation - - Inhaled Oxygen Concentration - - Weight 79.4 kg (175 lb) 08/01/2024 9:15 AM BLOW MOLDING MACHINE OPERATOR Height 167.6 cm (5' 6) 08/01/2024 9:15 AM BLOW MOLDING MACHINE OPERATOR Body Mass Index 28.25 08/01/2024 9:15 AM BLOW MOLDING MACHINE OPERATOR Plan of Treatment Health Maintenance Due Date [...] inal Result from Last 3 Months Insurance [facility] Care Teams Complex Case Manager Relationship Specialty [place] [address] [place] [address] PCP - General 07/05/23 Steven Lay PA-C [address] [facility] [address] [place] [address] Neurology 08/15/23
--- OUTSIDE RECORDS SUMMARY | 2024-09-18 18:32 | XMS_ITS | Encounter Summary ---
Author Organization [facility] Address [address] [place] [address] Care Team Providers Care Project Management Manager Name Role Phone Se Ann MD Primary Care Provider [phone] Steven Lay PA-C Unavailable [phone] Encounter Details Date Type Department Care Team (Late st Contact Info) Description 09/04/2024 Order-Scan [facility] of Neurology [address] [place] [phone] Clem Flores MD [address] [place] [address] [place] [id number] Social History Tobacco Use Types Packs/Day Years Used Date Smoking Tobacco: Never Smokeless Tobacco: Never Alcohol Use Standard Drinks/Week Comments Not Currently 0 (1 standard drink = 0.6 oz pur e alcohol) Comments Unknown Sex and Gender Information Value Date Recorded Sex Assigned at Not on file Legal Sex Female 11:57 AM MOLD PULLER Gender Identity Not on file Sexual Orientation [...] on filedocumented in this encounter Care Teams Project Management Manager Relationship Specialty [place] [address] [place] [address] PCP - General 07/05/23 Steven Lay PA-C [address] [facility] [address] [place] [address] Neurology 08/15/23 documented as of this encounter
== END 2024-09-18 18:55 | disposition home or self-care (01) ==
LOC: ED 18:29
PROVIDERS: Emergency Provider Emergency Medicine Emergency Medical Services; PCP Family Medicine
DX: R00.2 Palpitations (principal)
CPT/HCPCS: 93005; 99284

== ENCOUNTER 2025-01-11 01:27 | Emergency (ER) | payer MEDICAID, SELFPAY ==
--- OUTSIDE RECORDS SUMMARY | 2024-12-17 08:30 | XMS_ITS | Encounter Summary ---
Author Organization [facility] Address [address] [place] [address] Care Team Providers Care Powerhouse Mechanic Helper Name Role Phone Se Ann MD Primary Care Provider [phone] Steven Lay PA-C Unavailable + [phone] Reason for Visit * Reason Comments Follow up Seizure Headache Encounter Details Date Type Department Care Team (Late st Contact Info) Description 12/17/2024 8:30 AM CDT Office Visit [facility] of Neurology - [address] [place] [phone] Steven Lay PA-C [address] [place] [address] Complex partial seizure (HCC) (Primary Dx); Migraine with aura and without status migrainosus, not intractable Social History Tobacco Use Types Packs/Day Years Used Date Smoking Tobacco: Never Smokeless Tobacco: Never Alcohol Use Standard Drinks/Week Comments Not Currently 0 (1 standard drink = 0.6 oz pur e alcohol) Comments Unknown Sex and Gender Information Value Date Recorded Sex Assigned at Not on file Legal Sex Female 11:57 AM COMMUNITY ASSOCIATION MANAGER Gender Identity Not on file Sexual Orientation Not on file documented as of this encounter Last Filed Vital Signs Vital Sign Reading Time Taken Comments Blood Pressure - - Pulse - - Temperature - - Respiratory Rate 14 12/17/2024 8:45 AM CDT Oxygen Saturation - - Inhaled Oxygen Concentration - - Weight 79.4 kg (175 lb) 12/17/2024 8:45 AM CDT Height 167.6 cm (5' 6) 12/17/2024 8:45 AM CDT Body Mass Index 28.25 12/17/2024 8:45 AM CDT documented in this encounter Progress Notes * Steven Lay PA-C - 12/17/2024 8:30 AM CDT 12/17/2024 Neurology Follow-up Note 8:51 AM ~~~~~~~~~~~~ Steven Lay PA-C Neurology ~~~~~~~~~~~ REPORT OF CONSULTATION Patient Name: Kenya Das : 2000 Primary Care Physician: Se Ann MD Consulting Physician: Steven Lay PA-C HPI: Kenya is a 24-year-old female with complex partial seizures and intermittent migraines. She is getting in February and wants to be on a seizure medication that is safe during . She has been switching things around with different medications. She was this due to wanting to become in the future. She tried lamotrigine and ended up with a rash after this medication. Then she was on Keppra and noticed some mood changes. She is still on Keppra 250 twice daily but does not like the mood changes that it gives her and was given a prescription for Briviact 25 mg twice daily but has not switched over to this medication yet. Seizures episodes have been under control with current medications. Last episode was in June 2023. PAST MEDICAL HISTORY Past Medical History: Diagnosis Date Confusion and disorientation Headache PAST SURGICAL HISTORY No past surgical history on file. ALLERGIES/SENSITIVITIES No Known Allergies CURRENT MEDS Current Outpatient Medications: brivaracetam 25 mg oral Tab, Take 25 mg by mouth twice a day., Disp: 60 tablet, Rfl: 3 rizatriptan (MAXALT) 10 mg [...] Resource Strain: High Risk (05/28/2021) Received from [employer] Financial Resource Strain Difficulty of Paying Living Expenses: Not on file Difficulty of Paying Living Expenses: Not on file Food Insecurity: Not on file Transportation Needs: Not on file Physical Activity: Not on file Stress: Not on file Social Connections: Unknown (05/28/2021) Received from [employer] Social Connections Frequency of Communication with Friends and Family: Not on file Intimate Partner Violence: Not on file Housing Stability: Not on file FAMILY HISTORY Family History Problem Relation Name Age of Onset Seizures Maternal Grandmother REVIEW OF SYSTEMS: 10 point ROS was otherwise negative. Resp. rate 14, height 5' 6 (1.676 m), weight 79.4 kg (175 lb). Exam: Patient was well groomed and appeared of appropriate age. HEENT: Extraocular movements were intact. No mucosal congestion. Neck: The neck was supple. There were myofascial tender points in the paracervical, trapezius, and TMJ areas with tenderness over the occipital nerve bilaterally. Neurological examination: Higher mental functions: The patient was awake alert and oriented x3. Speech and language functionswere normal. Cranial nerves examination: Extraocular movements were intact. There was no disconjugate gaze. There were no facial sensory deficits. There was no facial asymmetry. The tongue and uvula were in the midline. The shoulder shrug was normal. CN II- XII normal. Motor examination: The tone was normal. There is no pronator drift. The strength in the proximal and distal muscle groups in both upper and lower extremities was normal at 5/5. Coordination: Finger to nose -normal. There was no dysmetria. Gait: The patient walked with a narrow-based gait. Assessment and Plan: Kenya is seen in follow-up of a history of complex partial seizures and classical migraines. Her migraines are currently infrequent and respond well to rizatriptan when needed. She is getting in February 2025 and wants to be on a medication for her seizures that is safe during in case she becomes . She has had to switch a couple different medications she was on Depakote and got off this because of the future possibility. She did try lamotrigine and this caused a rash and she had to stop this medication. She is now on Keppra but noticing mood changes but this and has not yet switched to Briviact. She was encouraged to switch over to Briviact 25 mg twice daily to help with seizure prevention. She will continue to watch out for migraine triggers. Once she becomes she should not use Maxalt but could use Tylenol and Benadryl as acute agents to help with headaches. She was encouraged to work on a daily exercise routine and to practice relaxation techniques. I will follow her back in about 2 months to see how she is doing once switching over to Briviact. I spent 32 min. With the patient in activities before, during and after the visit. [facility] 2024: Documentation of current mediations reviewed every visit 2. Does patient use tobacco? No 3. Patient has had no falls in calendar year 4. Does patient have Dementia? No Steven Lay PA-C Neurology documented in this encounter Plan of Treatment Not on file documented as of this encounter Visit Diagnoses Diagnosis Complex partial seizure (HCC)- Primary Localization-related (focal) (partial) epilepsy and epileptic syndromes with complex partial seizures, without mention of intractable epilepsy Migraine with aura and without status migrainosus, not intractable Migraine with aura, without mention of intractable migraine without mention of status migrainosus documented in this encounter Care Teams Powerhouse Mechanic Helper Relationship Specialty [place] [address] [place] [address] PCP - General 07/05/23 Steven Lay PA-C [address] [facility] [address] [place] [address] Neurology 08/15/23 documented as of this encounter
--- OUTSIDE RECORDS SUMMARY | 2025-01-11 01:29 | XMS_ITS | Encounter Summary ---
Author Organization [place] Address [address] [place] [address] Care Team Providers Care [employer] Teacher Name Role Phone Tino Ann MD Primary Care Provider [phone] Reason for Referral * Consultation (Routine: Next available opening) - Pending Review Specialty Diagnoses / Procedures Referred By Dennis frausto Referred To Contact Diagnoses Encounter for preconception consultation Epilepsy (H) Estrellita Gannon MD [address] [place] [address] Phone: tel: fax: Referral ID Status Reason Start Date Expiration Date V isits Requested Visits Authorized [id number] Pending Review 12/31/2024 12/31/2025 1 1 Question Answer Office Visit Type: MFM Consult Comments Pac precon * Consultation (Routine: Next available opening) - Pending Review Specialty Diagnoses / Procedures Referred By Dennis frausto Referred To Contact Diagnoses Encounter for preconception consultation Epilepsy (H) Estrellita Gannon MD [address] [place] [address] Phone: tel: fax: Referral ID Status Reason Start Date Expiration Date V isits Requested Visits Authorized [id number] Pending Review 12/31/2024 12/31/2025 1 1 Encounter Details Date Type Department Care Team (Late st Contact Info) Description 12/31/[address] [facility] [place] [address] [place] [address] Shani Lr, RN Encounter for preconception consultation (Primary Dx); Epilepsy (H) Social History Tobacco Use Types Packs/Day Years Used Date Smoking Tobacco: Never Assessed Comments Unknown Sex and Gender Information Value Date Recorded Sex Assigned at Not on file Legal Sex Female 4:19 AM CNC MAINTENANCE TECHNICIAN Gender Identity Not on file Sexual Orientation Not on file documented as of this encounter Plan of Treatment Scheduled Referrals Name Type Priority Associated Diagnoses Orde r Schedule [facility] Genetic Counseling Referral Routine: Next available opening Encounter For Preconception Consultation Epilepsy (H) Expected: 12/31/2024 (Approximate), Expires: 12/31/2025 MF Office Visit - [facility] Consult Referral Routine: Next available opening Encounter For Preconception Consultation Epilepsy (H) Expected: 12/31/2024 (Approximate), Expires: 12/31/2025 documented as of this encounter Visit Diagnoses Diagnosis Encounter for preconception consultation- Primary Epilepsy (H) Unspecified epilepsy without mention of intractable epilepsy documented in this encounter Care Teams [employer] Teacher Relationship Specialty Start Date End Date Tino Ann MD [facility] [address] [place] [address] PCP - General Family Medicine 09/04/24 documented as of this encounter
--- OUTSIDE RECORDS SUMMARY | 2025-01-11 01:29 | XMS_ITS | Clinical Summary ---
Author Organization [facility] Address [address] [place] [address] Care Team Providers Care Teletype Installer Name Role Phone Se Ann MD Primary Care Provider [phone] Steven Lay PA-C Unavailable + [phone] Allergies No known active allergies Medications rizatriptan (MAXALT) 10 mg oral tabletIndication s:Migraine with aura and without status migrainosus, not intractable Take 1 tablet (10 mg) by mouth as needed for migraine headache. May repeat after two hours. Maximum dose 30mg/24 hours. 12 tablet 11 5 Active brivaracetam 25 mg oral Tab Take 25 mg by mouth twice a day. 60 tablet 3 5 Active Active Problems No known active problems Encounters Date Type Department Care Team Description 12/17/2024 8:30 AM CDT Office Visit [facility] of Neurology 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 TRAILER MECHANIC Gender Identity Not on file Sexual Orientation Not on file Last Filed Vital Signs Vital Sign Reading Time Taken Comments Blood Pressure 124/78 08/29/2023 9:05 AM CDT Pulse 70 08/29/2023 9:05 AM CDT Temperature - - Respiratory Rate 14 12/17/2024 8:45 AM CDT Oxygen Saturation - - Inhaled Oxygen Concentration - - Weight 79.4 kg (175 lb) 12/17/2024 8:45 AM CDT Height 167.6 cm (5' 6) 12/17/2024 8:45 AM CDT Body Mass Index 28.25 12/17/2024 8:45 AM CDT Plan of Treatment Health Maintenance Due Date Last Done Comments Evaluate Sexual History 2001 Hepatitis C Screening 2001 Pap Smear 2001 Anxiety Screening (MEGHAN-2) 2002 Depression Assessment (PHQ-2) 2002 Meningococcal B Vaccine (1 of 2 - Standard) 2017 Chlamydia/Gonorrhea Screening 09/17/2021 09/17/2020 Adult Tetanus Booster 01/08/2024 01/07/2014 COVID-19 Vaccine ( - season) 2024 Influenza Vaccine (#1) 2025 07/14/2006, 2002 RSV Vaccines (1 - 1-dose 75+ series) 2076 Pneumococcal Vaccine Aged Out 07/23/2002, 01/31/2002, 2001, Additional history exists No longer eligible based on patient's age to complete this topic HPV Vaccine Completed 12/19/2016, 01/07/2014 Insurance [facility] Member Subscriber Plan / Payer (Ef fective 2024-Present) Name:Kneya Das Relation to Subscriber:Self Name:Kenya Das Payer ID:[id number] (NAIC) [id number] Type:[employer] Address: [address] [address] Care Teams Teletype Installer Relationship Specialty [place] [address] [place], [place] [id number] PCP - General 07/05/23 Steven Lay PA-C [address] [facility] [address] [place] [address] Neurology 08/15/23
--- OUTSIDE RECORDS SUMMARY | 2025-01-11 01:29 | XMS_ITS | Encounter Summary ---
Author Organization [place] Address [facility] [place] [address] Care Team Providers Care Prehemmer Name Role Phone Tino Ann MD Primary Care Provider [phone] Reason for Referral * Consultation (Routine: Next available opening) - Pending Review Specialty Diagnoses / Procedures Referred By Dennis t Referred To Contact Diagnoses Encounter for preconception consultation Candy Marin APRN CNM [facility] [address] [place] [address] Phone: tel: fax: [facility] [place] [address], [place] [address] Phone: tel: fax: Referral ID Status Reason Start Date Expiration Date V isits Requested Visits Authorized [id number] Pending Review 12/29/2024 12/29/2025 1 1 Question Answer Preferred Location: [facility] Indication: epilepsy MFM Consultation (unrelated to Ultrasound findings): Yes Fax number results need to be sent to: Candy Marin [facility], Comments >> Patient may proceed with recommendations for further testing as directed by the Maternal Medicine Specialist >> Please be aware that coverage of these services is subject to the terms and limitations of your health insurance plan. Call member services at your health plan with any benefit or coverage questions. Encounter Details Date Type Department Care Team (Latest Contact Info) Description 12/29/[address] [facility] [place] [address] [place] [address] Candy Marin APRN [facility] [address] [place] [address] Encounter for preconception consultation (Primary Dx) Social History Tobacco Use Types Packs/Day Years Used Date Smoking Tobacco: Never Assessed Comments Unknown Sex and Gender Information Value Date Recorded Sex Assigned at Not on file Legal Sex Female 4:19 AM FLEXIBLE NANNY Gender Identity Not on file Sexual Orientation Not on file documented as of this encounter Plan of Treatment Scheduled Referrals Name Type Priority Associated Diagnoses Orde r Schedule Mat Med CTR Referral - Preconception Referral Routine: Next available opening Encounter For Preconception Consultation Expected: 12/29/2024 (Approximate), Expires: 06/27/2025 documented as of this encounter Visit Diagnoses Diagnosis Encounter for preconception consultation- Primary documented in this encounter Care Teams Prehemmer Relationship Specialty Start Date End Date Tino Ann MD [facility] [address] [place] [address] PCP - General Family Medicine 09/04/24 documented as of this encounter
--- OUTSIDE RECORDS SUMMARY | 2025-01-11 01:29 | XMS_ITS | Clinical Summary ---
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 5 Active rizatriptan (MAXALT) 10 mg tablet Take 10 mg by mouth. 5 Active [id number] 40-10-1-300 mg capIndications:Foc al epilepsy with impairment of consciousness (HC) Take by mouth once daily. 90 Capsule 3 5 Active brivaracetam (BRIVIACT) 25 mg tablet Take 25 mg by mouth 2 times daily 12 hours apart. 5 Active folic acid 1 mg tabletIndications: Focal epilepsy with impairment of consciousness (HC) Take 2 Tablets (2 mg) by mouth once daily. 180 Tablet 3 5 01/08/20 26 Active Hospital, Clinic, or Other Facility Administered Medication Ordered Dose Route Frequency Start Date End Date Status etonogestrel subdermal implant (NEXPLANON) 1 EachIndications:Uses contraception 1 Each Sdrm Q 3 YEARS 08/05/2020 Active Active Problems Problem Noted Date Diagnosed Date Focal epilepsy with impairment of consciousness 01/07/2025 Migraine with aura and witho ut status migrainosus, not intractable 01/07/2025 Encounters Date Type Department Care Team Description 01/07/2025 7:40 AM CDT Office Visit [facility] [place] [address] [facility] [address] [place] [address] Max Quezada, Consult 01/07/2025 Travel 12/30/2024 Transcribe Orders [facility] [place] [phone] Candy Marin CNM from Last 3 Months Family History Medical History Relation Name Comments Good Health Brother 1 Isacc Christopheron Good Health Brother 2 Eddie Sidhudrickson Good Health Brother 3 Ty Pippa Hypertension Father Manny Das Good Health Maternal Grandfather Good Health Maternal Grandmother Good Health Mother Jasmin Christopheron Good Health Paternal Grandfather Good Health Paternal Grandmother Good Health Sister Mindy Christopheron Relation Name Status Comments Brother 1 Isacc Pippa Alive Brother 2 Eddie Gomezickson Alive Brother 3 Ty Pippa Alive Father Manny Das Alive Maternal Grandfather Other Maternal Grandmother Alive Mother Jasmin Das Alive Paternal Grandfather Alive Paternal Grandmother Alive Sister Mindy Christopheron Alive Social History Tobacco Use Types Packs/Day [...] on file Legal Sex 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 Gender Identity Not on file Sexual Orientation Not on file Obstetrics History Last Filed Vital Signs Vital Sign Reading Time Taken Comments Blood Pressure 124/80 09/17/2020 8:18 AM CDT Pulse 80 09/17/2020 8:18 AM CDT Temperature 37.1 C (98.7 F) 09/17/2020 8:18 AM CDT Respiratory Rate 20 07/27/2020 2:38 PM METALLURGICAL LAB TECHNICIAN Oxygen Saturation 100% 09/01/2020 11: 20 AM CDT Inhaled Oxygen Concentration - - Weight 69.7 kg (153 lb 11.2 oz) 09/17/2020 8:18 AM CDT Height 169 cm (5' 6.54) 09/17/2020 8:18 AM CDT Body Mass Index 24.41 09/17/2020 8:18 AM CDT Plan of Treatment Health Maintenance Due Date Last Done Comments Tetanus booster 2012 Depression screening for age 12+ 2013 HIV for age 15-65 2016 HPV series for age 9-26 (1 - 3-dose series) 2016 Hepatitis C screening for ag e 18-79 2019 Hepatitis B series for 19+ ( 1 of 3 - 19+ 3-dose series) 2020 BMI (ht and wt on same day) for age 18+ 09/17/2021 09/17/2020 Chlamydia for age 16-24 09/17/2021 09/17/2020 COVID-19 vaccine series ( - season) 2024 Influenza Vaccine (#1) 2025 Pap test for age 21-65 08/04/2025 08/04/2022 Pneumococcal series for age 6-49 Aged Out No longer eligible based on patient's age to complete this topic Procedures Procedure Name Priority Date/Time Associated Diagnosis Comments [employer] THIN PREP PAP SCREEN IMAGED Routine 08/04/2022 11:45 AM METALLURGICAL LAB TECHNICIAN GC CHLAMYDIA TRACH PROBE Routine 09/17/2020 8:54 AM CDT Vaginal discharge from Last 3 Months or Most Recently Relevant to Health Maintenance Results * [employer] THIN PREP PAP SCREEN IMAGED (08/04/2022 11:45 AM METALLURGICAL LAB TECHNICIAN) Case Report Gynecologic Cytology Report Case: [id number] Authorizing Provider: Unknown, Doctor Collected: 08/04/2022 1145 Ordering Location: [facility] Received: 08/07/2022 4297 First Screen: Lien Anil Specimen: [employer] ThinPrep Vial Screening, Cervical 08/27/2022 11:27 AM CDT [facility] ENTRAL LABORATORY INTERPRETATION/ RESULT NEGATIVE FOR INTRAEPITHELIAL LESION OR MALIGNANCY (NIL) (none) 08/27/2022 11:27 AM CDT [facility] at 1127 CDT ORGANISM(S) Fungal organisms morphologically consistent with Salma species 08/27/2022 11:27 AM CDT [facility] SPECIMEN ADEQUACY Satisfactory for evaluation No endocervical component seen 08/27/2022 11:27 AM CDT [facility] HPV REQUEST HPV not requested 2022 11:27 AM CDT [facility] Date of LMP 07/07/2022 08/27/2022 11:27 AM CDT [facility] Last Pap Date 08/27/2022 11:27 AM CDT [facility] Comment:1st pap Last Pap Result First Pap/Unknown 11:27 AM CDT [facility] Abnormal Pap or Onia Bx in last 5 years No 08/27/2022 11:27 AM CDT [facility] Onia Bx Done Today No 08/27/2022 11:27 AM CDT [facility] Additional Information 08/27/2022 11:27 AM CDT [facility] Comment: Interpreted at [facility], Central Laboratory - [address] [facility] [address], [place] [address] Automated Review Successful 08/27/2022 11:27 AM CDT [facility] Comment:Specimen processed s uccessfully by automated flight communications operator device, ThinPrep Imaging System, [employer] Note The pap test is a screening technique, not a diagnostic procedure. It is used primarily to screen for squamous cancers and precursor lesions. Published studies have shown that it is subject to both false negative and false positive results. The pap test should not be used as the sole means to diagnose or exclude pre-malignant and malignant lesions. 08/27/2022 11:27 AM CDT [facility] Other (Cervical) 08/04/2022 11:45 AM METALLURGICAL LAB TECHNICIAN 08/07/2022 5:52 PM CDT us Doctor Unknown PATHOLOGY/CYTOLOGY Final Result [facility] [address] [place] [address], [place] * GC CHLAMYDIA TRACH PROBE (09/17/2020 8:54 AM CDT) CHLAMYDIA PROBE Negative 11:41 PM CDT [facility] N GONORRHOEAE PROBE Negative 09/17/2020 11:41 PM CDT [facility] Other URINE SPECIMEN / Unknown Non-Blood / Unknown 09/17/2020 8:54 AM CDT 09/17/2020 8:54 AM CDT us Akanksha Johnson MD MICROBIOLOGY Fi nal Result Performing Organization Address City/[facility]/ZIP Co de Phone Number [facility] [address] [place] [address], [place] from Last 3 Months or Most Recently Relevant to Health Maintenance Insurance [facility] Care Teams Pattern Illustrator Relationship Specialty Start Date End Date Pcp, No . PCP - General 09/17/20 Unknown, Doctor . 09/17/20 Unknown, Doctor . 09/01/20
--- OUTSIDE RECORDS SUMMARY | 2025-01-11 01:29 | XMS_ITS | Clinical Summary ---
Author Organization [place] Address [facility] [place] [address] Care Team Providers Care Seafood Team Member Name Role Phone Tino Ann MD Primary Care Provider [phone] Encounters Date Type Department Care Team Description 12/31/2024 Orders Only [facility] [place] [address] [place] [address] Shani Lr, RN Encounter for preconception consultation (Primary Dx); Epilepsy (H) 12/29/2024 Medical Correspondence [facility] Information Management [address] [place] [address] Scan, Non-Provider 12/29/2024 Transcribe Orders [facility] [place] 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
--- OUTSIDE RECORDS SUMMARY | 2025-01-11 01:29 | XMS_ITS | Encounter Summary ---
Author Organization [place] Address [address] [place] [address]. 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
[2025-01-11 01:40] VITALS: BP 139/82; PULSE 77; RESP 16; TEMP 36.3; O2SAT 99; BMI 25.8
--- NOTE | 2025-01-11 01:56 | CRLHL7_ITS ---
For Patients: As a result of the Cures Act, medical imaging exams and procedure reports are released immediately into your electronic medical record. You may view this report before your referring provider. If you have questions, please contact your health care provider. Indication: Chest pain Technique: Two views of the chest Comparison: None Findings/Impression: No acute cardiopulmonary process detected. Dictated by Kj Alvarado MD @ 01/11/2025 2:19:22 AM (Electronically Signed)
--- NOTE | 2025-01-11 01:59 | ED.GENADULT ---
HPI - General Adult General Chief complaint: Chest Pain Stated complaint: Chest Pain Time Seen by Provider: 01/11/25 01:50 Source: patient Mode of arrival: ambulatory Limitations: no limitations History of Present Illness HPI narrative: 24-year-old female with prior history of seizure disorder presents to the emergency department for evaluation of chest pain for the past 3-1/2 hours. No injury or trauma. No shortness of breath. Chest pain is vague, substernal, radiates to the back. Nonexertional, not affected by activity or position. Did not try any interventions prior to coming to ED. Has had chest pain a few months ago, self-limited and resolved. She had a workup in the ED for racing heart 4 months ago as well, found to be benign. No true history of dysrhythmias. Patient recently had her lamotrigine discontinued due to a rash in she has been started on brivaracetam. No fever. Started feeling a little lightheaded and dizzy at around 7:00 p.m. but was out socially. When her chest pain started, she continued her social activities until they concluded at which time she came to the ED several hours later. No syncope, no neurological changes. No recent seizures. She will her symptoms and it said that she had chest pain and dizziness, she should come to an emergency department. Past medical history reviewed, ED note from August reviewed as well. Only home medication is her anticonvulsant and also has sumatriptan to take p.r.n.. Reportedly has celiac disease anxiety and seizure disorder as stated above. Allergies are to amoxicillin causing hives and lamotrigine causing a rash. Nonsmoker. ROS is notable for the chest in generalized symptoms as above, otherwise denies times 12 systems. Related Data Home Medications ?Medication ?Instructions ?Recorded ?Confirmed levetiracetam 250 mg tablet 250 mg PO BID 12/16/24 01/11/25 (Keppra) rizatriptan 10 mg tablet mg PO PRN 12/16/24 12/16/24 brivaracetam 25 mg tablet 25 mg PO BID 01/11/25 01/11/25 (Briviact) Allergies Allergy/AdvReac Type Severity Reaction Status Date / Time clavulanic acid Allergy Severe Hives Verified 12/16/24 11:21 lamotrigine Allergy Intermediate Rash Verified 01/11/25 01:48 amoxicillin Allergy Unknown hives, Verified 12/16/24 11:21 swollen eyes, vomiting PFSH PFSH Medical History Near syncope ?R55 - Syncope and collapse (ICD-10) Family History Father Depression Brother Depression Family/Other Epilepsy Social History Narrative: SOCIAL HISTORY:?? Education: Some college? 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 Engaged Lives with: Lives with significant other? Abuse: Denies past/present?? Special Diet: denies? RISK FACTORS?? Exercise Times/wk: Walking, 3x? Depression/Anxiety: Anxiety, sertraline Social stressors: new diagnosis? Smoking: Denies?? Alcohol/day: occasionally?? Drug Use: Denies past/present?? Recent weight change?: Lost 15 lbs in the last year? Exposure to harmful chemicals? no Smoking Status: Never smoker Do you use any of these nicotine containing products: None Second hand tobacco smoke exposure: No How often do you have a drink containing alcohol: never AUDIT-C Alcohol total score: 0 Non-prescribed substance use: denies use service: No Exam Const: Vital Signs, click to edit/add: Vital Signs - 24 hr 01/11/25 01:40 Temperature 97.4 F L Pulse Rate [Pulse Oximeter] 77 Respiratory Rate 16 Blood Pressure [Ri ght Upper Arm] 139/82 Pulse Oximetry 99 Oxygen Delivery Me thod Room Air Documenting provider has reviewed patient's vital signs: yes Common normals: no apparent distress and alert General appearance: comfortable HENMT: Common normals: normocephalic, moist oral mucous membranes and oropharynx normal Head and scalp: normocephalic Eye: Common normals: conjunctivae normal General eye: normal appearance of both eyes Conjunctiva: conjunctiva(e) normal Neck & C-Spine: Common normals: full ROM and no lymphadenopathy General: normal visual inspection Resp: Common normals: normal respiratory effort, no use of accessory muscles and clear to auscultation bilaterally Effort & inspection: able to speak in complete sentences Auscultation: clear to auscultation bilaterally Cardio: Common normals: regular rate, regular rhythm, S1 normal heart sound, S2 normal heart sound and no murmurs Rate: regular rate Rhythm: regular rhythm Heart sounds: S1 normal and S2 normal GI: Common normals: Normal to inspection, nondistended, normoactive bowel sounds present, soft to palpation, non-tender, no hepatosplenomegaly and no masses Palpation: soft and no hepatosplenomegaly Extremity: Common normals: normal to inspection and no pedal edema Neuro: Common normals: moves all extremities and no focal motor deficits Sensorium/orientation: alert Speech: speech normal Psych: Attitude: engaged Activity/motor behavior: appropriate eye contact Insight: insight good Judgement: judgment good Skin: Common normals: no rashes or lesions noted General skin exam: no rashes or lesions noted Course Course ED Course: 24-year-old female with nonexertional chest pain. There is no tachycardia or hypoxia that would suggest pulmonary embolism. Differential diagnosis also includes acute coronary syndrome, heart failure, aortic emergency, musculoskeletal chest pain, GERD, amongst many others. Will obtain EKG, typical cardiac labs including TSH. Chest x-ray and EKG. Reevaluation(s) Time of Reevaluation #1: 03:26 Reevaluation #1: Counseled patient on findings. Symptoms have somewhat improved on their own with no treatment. Uncertain of the etiology but no signs of dangerous pathology. Could be related to a new medication but will likely be self-limited and work itself out in time. I would like for her to continue her current medication and follow up with her neurologist as is planned. Keep a symptom diary. The alarm symptoms that would typically warrant ED evaluation for reviewed as indications to come back. She verbalizes understanding and agreement. Written instructions provided. Counseled on Tylenol and ibuprofen p.r.n.. Vital Signs Vital signs: Initial Vital Signs Temperature 97.4 F L 01/11/25 01:40 Temperature Source Temporal Artery Scan 01/11/25 01:40 Pulse Rate 77 01/11/25 01:40 Respiratory Rate 16 01/11/25 01:40 Blood Pressure 139/82 01/11/25 01:40 Blood Pressure Mean 101 01/11/25 01:40 Blood Pressure Position Sitting 01/11/25 01:40 Pulse Oximetry 99 01/11/25 01:40 Oxygen Delivery Method Room Air 01/11/25 01:40 Vital Signs Temperature 97.4 F L 01/11/25 01:40 Pulse Rate 77 01/11/25 01:40 Respiratory Rate 16 01/11/25 01:40 Blood Pressure 139/82 01/11/25 01:40 Pulse Oximetry 99 01/11/25 01:40 Oxygen Delivery Method Room Air 01/11/25 01:40 Temperature 97.4 F L 01/11/25 01:40 Pulse Rate 77 01/11/25 01:40 Respiratory Rate 16 01/11/25 01:40 Blood Pressure 139/82 01/11/25 01:40 Pulse Oximetry 99 01/11/25 01:40 Oxygen Delivery Method Room Air 01/11/25 01:40 Medical Decision Making Lab Data Lab results reviewed: Yes I reviewed the patient's lab results Lab results narrative: Labs are all reassuring. No signs of thyroid disease, anemia, electrolyte abnormality, cardiac disease. Labs: Lab Results 01/11/25 Range/Units 02:06 WBC 9.03 (4.50-11.00) K/uL RBC 4.35 (4.00-5.20) m/uL Hgb 13.2 (12.0-16.0) gm/dL Hct 38.7 (33.0-51.0) % MCV 89 (80-100) fL MCH 30 (26-34) pg MCHC 34 (32-36) gm/dL RDW Coeff of Richie 12.8 (11.5-15.5) % Plt Count 314 (140-440) K/uL Neut % (Auto) 57.5 (42.0-72.0) % Lymph % (Auto) 32.0 (20-44) % [place] % (Auto) 9.4 (0.0-11.0) % Eos % (Auto) 0.7 (0.0-7.0) % Baso % (Auto) 0.3 (0.0-3.0) % Neut # (Auto) 5.19 (1.7-7.0) K/uL Lymph # (Auto) 2.89 (0.90-2.90) K/uL [place] # (Auto) 0.80 (0.00-0.90) K/UL Eos # (Auto) 0.06 (0.00-0.50) K/uL Baso # (Auto) 0.03 (0.00-0.30) K/uL Abs Immat Gran (auto) 0.01 (0.00-0.30) K/uL Imm/Tot Granulo (auto) 0.1 % Sodium 138 (135-149) mmol/L Potassium 3.8 (3.6-5.1) mmol/L Chloride 102 (96-114) mmol/L Carbon Dioxide 28 (20-32) mmol/L Anion Gap 8 (7-15) mEq/L BUN 13 (5-24) mg/dL Creatinine 0.7 (0.5-1.5) mg/dL Estimated Creat Clear 117.01 Estimated GFR 125 ml/min Glucose 101 (60-115) mg/dL Calcium 9.6 (8.4-10.6) mg/dL Total Bilirubin 0.3 (0.1-1.5) mg/dL AST 33 (12-35) U/L ALT 21 (4-35) U/L Alkaline Phosphatase 74 (40-150) U/L Troponin I < 0.01 (0.01-0.04) ng/mL C-Reactive Protein < 0.5 L (0.5-1.0) mg/dL NT-Pro-B Natriuret Pep 31 (See Note) pg/mL Total Protein 7.5 (6.0-8.3) g/dL Albumin 4.6 (3.3-5.0) g/dL TSH 2.690 (0.270-4.200) uIU/mL Imaging Data Chest x-ray: Attestation: I have reviewed the pertinent imaging results. My impression: Normal chest x-ray. No infiltrate, cardiomegaly, edema. Radiologist's impression: Two views of the chest Comparison: None Findings/Impression: No acute cardiopulmonary process detected. Dictated by Kj Alvarado MD @ 01/11/2025 2:19:22 AM Discharge Plan Discharge Clinical Impression: Chest pain, non-cardiac Patient Disposition: Home, Self-Care Condition: Stable Instructions: Noncardiac Chest Pain (ED) Additional Instructions: As we discussed, everything is looking great today. No signs of blood clot or heart attack or abnormal heart rhythm or any other dangerous cause for the pain. It is okay to use Tylenol 1000 mg every 6 hours and/or ibuprofen 600 mg every 6 hours if the discomfort bothers you enough to do so. I do not think that it is necessarily related to your new medications though there could be a correlation. I do think you should stay on the new medication for a few more weeks and then follow-up with your neurologist and if you continue to have side effects you guys can consider together what the next best course of action is. If you have severe symptoms especially if accompanied by passing out, severe chest pain, especially if it is on exertion and accompanied by an irregular heart rate, you should be re-evaluated. Otherwise, you are cleared to exercise and perform all typical duties. Activity Level: No Restrictions Prescriptions: No Action levetiracetam [Keppra] 250 mg tablet 250 mg PO BID Briviact 25 mg tablet 25 mg PO BID rizatriptan 10 mg tablet PO PRN Follow Up/Referrals: Se Ann MD [Primary Care Provider, Family Practice] Stand Alone Forms: [employer] Info Instructions
[2025-01-11 02:20] LABS: Hematocrit 38.7 % (33.0-51.0); Hemoglobin* 13.2 gm/dL (12.0-16.0); Immature Granulocytes Abs Auto 0.01 K/uL (0.00-0.30); Immature Granulocytes Pct Auto 0.1 %; Lymphocytes Absolute Auto 2.89 K/uL (0.90-2.90); Mean Corpuscular HGB Conc 34 gm/dL (32-36); Mean Corpuscular Hemoglobin 30 pg (26-34); Mean Corpuscular Volume 89 fL (80-100); RDW Coefficient of Variation % 12.8 % (11.5-15.5); Red Blood Count 4.35 m/uL (4.00-5.20); White Blood Count* 9.03 K/uL (4.50-11.00)
[2025-01-11 02:24] LABS: Slide Review Reflex No
[2025-01-11 02:31] LABS: Albumin* 4.6 g/dL (3.3-5.0); Chloride* 102 mmol/L (96-114); Potassium* 3.8 mmol/L (3.6-5.1); Sodium* 138 mmol/L (135-149)
[2025-01-11 02:34] LABS: Alanine Aminotransferase* 21 U/L (4-35); Alkaline Phosphatase* 74 U/L (40-150); Anion Gap 8 mEq/L (7-15); Aspartate Amino Transferase* 33 U/L (12-35); Bilirubin Total* 0.3 mg/dL (0.1-1.5); Blood Urea Nitrogen* 13 mg/dL (5-24); Carbon Dioxide* 28 mmol/L (20-32); Creatinine* 0.7 mg/dL (0.5-1.5); Est. Creatinine Clearance* 117.01; Estimated Glomerular Filt Rate 125 ml/min
[2025-01-11 02:35] LABS: Calcium* 9.6 mg/dL (8.4-10.6); Glucose* 101 mg/dL (60-115); Total Protein* 7.5 g/dL (6.0-8.3)
[2025-01-11 02:46] LABS: NT Pro B Type NatriureticPept* 31 pg/mL (See Note)
[2025-01-11 03:15] LABS: TSH With Reflex to FT4* 2.690 uIU/mL (0.270-4.200)
[2025-01-22 07:43] LABS: Troponin, Point-of-Care* 0.00 ng/ml (0.01-0.04)
== END 2025-01-11 03:37 | disposition home or self-care (01) ==
PROVIDERS: Emergency Provider Family Medicine; PCP Family Medicine
DX: R07.9 Chest pain, unspecified (principal)
CPT/HCPCS: 36415; 71046; 80053; 83880; 84443; 84484; 85025; 86140; 93005; 99284